=== PATIENT | male | born 1950 | race Caucasian/White ===

== ENCOUNTER 2019-08-28 07:23 | Outpatient (RCR) | payer MEDICARE, SELFPAY ==
[2019-06-12 16:00] VITALS: BMI 43.2
--- NOTE | 2019-06-12 16:43 | PCWOUND ---
Patient has open maceration to the bilateral lower legs and to the right anterior foot. Patient must change his dressings twice a day due to large amount of exudate. For 30 days of supplies, patient needs 180 4-inch kerlex rolls, 180 large 6in X 9in Xtrasorb pads, 60 small 4in X 5in Xtrasorb pads, 240 Mepilex transfers. Patient is seen monthly at the wound center for evaluation.
--- NOTE | 2019-07-15 10:42 | PCWOUND ---
patients called to cancel appointment for today, states patient not feeling well. Rescheduled for Sunday07/23/19 at 1330.
--- NOTE | 2019-08-29 07:13 | PCWOUND ---
Patient has open maceration to the bilateral lower legs and to the right anterior foot. Patient must change his dressings three times a day due to copious amount of exudate. For 30 days of supplies, patient needs 360 4-inch kerlex rolls (he uses 4 rolls per dressing change), 270 large 6in X 9in Xtrasorb pads ( he uses 3 large xtrasorbs per dressing), 90 small 4in X 5in Xtrasorb pads( he uses 1 per dressing change to the foot), 360 Mepilex transfers ( he uses 4 transfers per change). Patient is seen monthly at the wound center for evaluation.
== END 2019-09-10 23:59 | disposition home or self-care (01) ==
LOC: ANHWOC 07:23
PROVIDERS: PCP Family Medicine; Visit Provider Internal Medicine Hematology & Oncology
DX: Z48.00 Encounter for change or removal of nonsurgical wound dressing (principal)
CPT/HCPCS: 29581; 99214; A9270; G0463

== ENCOUNTER 2020-01-23 13:16 | Outpatient (RCR) | payer MEDICARE, SELFPAY ==
--- NOTE | 2019-09-24 08:49 | PCWOUND ---
Appointment cancelled for 09/25/19 due to patient being high risk with multiple co-morbidities and hospital being on COVID-19 restrictions. Will reschedule once restrictions have been lifted.
--- NOTE | 2019-09-25 07:49 | PCWOUND ---
WOCN NOTE Patient with open weeping maceration to the bilateral lower legs, right dorsal foot, and ulcer to the sacrum. right leg area approx measures 30 cm in length by 50 cm in width by 0.2 cm in depth. dorsal right foot 14 cm in length by 14 cm in width by 0.2 cm in depth. left leg 12 cm in length by 22 cm in width by 0.2 cm in depth. sacrum deep tissue injury measures 6 cm in length by 6 cm in width by 0.2 cm in depth. stage 3. leg and foot with large serous exudate. sacrum moderate serosanguineous exudate.
--- NOTE | 2019-09-25 07:57 | PCWOUND ---
WOCN NOTE Patient has open maceration to the bilateral lower legs and right anterior foot. Patient must change his dressings three times a day due to copious amount of exudate. For 30 days of supplies patient needs 360 4-inch kerlex rolls (he uses rolls per dressing change),270 large 6 in x 9in xtrasorb pads (he uses 3 large xtrasorb per dressing change).90 small 4 in x 5 in xtrasorb pads (he uses 1 per dressing change to the foot), 360 Mepilex transfers ( he uses 4 transfers per change). 30 aquacel adhesive foam 9.4 in by 8.4 in for his sacrum ulcer ( or use equivalent for daily dressing change).
--- NOTE | 2020-01-28 09:27 | PCWOUND ---
WOCN NOTE patient seen in the wound center on 01/23/2020 for open maceration to bilateral lower legs and right foot. Patient must change his dressings twice a day due to large amount of exudate. For 30 days of supplies patient needs 180 4 inch kerlex rolls(he uses 3 rolls per dressing change), 180 large 6inch by 9inch Xtrasorb pads( he uses 3 large xtrasorb per dressing change, 60 small 4inch by 5inch Xtrasorb pads( 1 small pad per dressing change for right foot), 240 Mepilex transfers( he uses 4 transfers per change).
== END 2020-04-22 23:59 | disposition home or self-care (01) ==
LOC: ANHWOC 13:16
PROVIDERS: PCP Emergency Medicine; Visit Provider Internal Medicine Hematology & Oncology
DX: S81.801D Unspecified open wound, right lower leg, subsequent encounter (principal); S81.802D Unspecified open wound, left lower leg, subsequent encounter
CPT/HCPCS: 99213; A9270; G0463

== ENCOUNTER 2020-04-27 12:18 | Outpatient (CLI) | payer MEDICARE, SELFPAY ==
[2020-04-27 12:46] LABS: Basophils Percent Auto 0.3 % (0.2-1.2); Eosinophils Absolute Auto 0.3 K/mm3 (0-0.3); Eosinophils Percent Auto 4.3 % (0-4.4); Hematocrit 32.4 % (42.0-52.0); Hemoglobin 10.2 g/dL (14.0-18.0); Immature Granulocyte Absolute 0.03 K/mm3 (0.00-0.031); Immature Granulocyte Percent A 0.4 % (0-0.5); Lymphocytes Absolute Auto 2.12 K/mm3 (0.9-3.2); Lymphocytes Percent Auto 27.8 % (18.3-44.2); Mean Corpuscular HGB Conc 31.5 g/dl (32-36); Mean Corpuscular Hemoglobin 35.7 pg (26-34); Mean Corpuscular Volume 113.3 fl (80-100); Mean Platelet Volume 9.2 fl (7.4-10.4); Monocytes Absolute Auto 0.6 K/mm3 (0.1-0.6); Monocytes Percent Auto 8.1 % (2.6-8.5); Neutrophils Absolute Auto 4.5 K/mm3 (1.3-6.7); Neutrophils Percent Auto 59.1 % (45.5-73.1); Platelet Count Result 155 k/mm3 (150-375); Red Blood Count 2.86 M/mm3 (4.6-6.20); Red Cell Distribution Width 15.1 % (11.5-14.5); White Blood Count 7.6 K/mm3 (4.5-10.0)
[2020-04-27 12:50] LABS: Blood Urea Nitrogen 11 mg/dL (8-26); Carbon Dioxide 31 mmol/L (22-30); Chloride 101 mmol/L (98-109); Estimated Glomerular Filt Rate > 60; Glucose 110 mg/dL (70-105); Potassium 3.9 mmol/L (3.5-4.9); Sodium 141 mmol/L (138-146)
[2020-04-27 12:51] LABS: Atypical Lymphocytes Present; Platelet Estimate Adequate (Adequate)
[2020-04-27 14:41] LABS: Iron 56 ug/dL (49-181)
[2020-04-27 14:59] LABS: Percent Iron Saturation 23 % (20-50)
[2020-04-27 15:54] LABS: Folic Acid 5.5 ng/mL (2.76->20); Vitamin B12 > 1000.0 pg/mL (239-931)
== END 2020-04-27 12:19 | disposition home or self-care (01) ==
PROVIDERS: PCP Emergency Medicine; Visit Provider Internal Medicine Hematology & Oncology
DX: D50.9 Iron deficiency anemia, unspecified (principal)
CPT/HCPCS: 36415; 80048; 82607; 82728; 82746; 83540; 83550; 85025

== ENCOUNTER 2020-06-10 08:06 | Outpatient (RCR) | payer MEDICARE, SELFPAY ==
--- NOTE | 2020-05-13 15:13 | PCWOUND ---
WOCN NOTE patient comes to the [facility] wound center for treatment of venous stasis ulcers to right lower leg and right foot. Patient changes dressing twice a day due to amount of exudate. Patient used (2) 4 inch kerlex rolls per change needing 120 roll/month. Patient uses (2) large Xtrasorb pads per change needing 120/month. Patient uses (1) small Xtrasorb [id number] pad for right foot, needed 60/month. Patient is followed monthly for evaluation.
--- NOTE | 2020-06-10 14:10 | PCWOUND ---
WOCN NOTE patient comes to the [facility] wound center for treatment of venous stasis ulcers to right lower leg and right foot. Patient changes dressing twice a day due to amount of exudate. Patient used (2) 4 inch kerlex rolls per change needing 120 roll/month. Patient uses (2) large Xtrasorb pads per change needing 120/month. Patient uses (1) small Xtrasorb [id number] pad for right foot, needed 60/month. Patient is followed monthly for evaluation.
--- NOTE | 2020-09-21 09:49 | PCWOUND ---
WOCN NOTE Patient cancelled appointment for September 23. states she will call back next week to reschedule.
== END 2020-08-11 23:59 | disposition home or self-care (01) ==
LOC: ANHWOC 08:06
PROVIDERS: PCP Emergency Medicine; Visit Provider Internal Medicine Hematology & Oncology
DX: D50.9 Iron deficiency anemia, unspecified (principal)
CPT/HCPCS: 99213; A9270; G0463